=== PATIENT | male | born 1955 | race Caucasian/White ===

== ENCOUNTER 2020-02-24 19:26 | Inpatient (IN) | payer OTHER, SELFPAY ==
[~2020-02-24] VITALS: Ht 165.1 cm; Wt 64.5 kg
[2020-02-24 19:35] VITALS: Ht 165.1 cm; Wt 64.5 kg
--- NOTE | 2020-02-24 19:51 | NUR ---
PT BIB [facility] FROM [facility]. PT PLACED ON BED, MONITOR APPLIED AND VS DONE. PT C/O SOB SINCE THIS AM WITH INCREASED BM/ABD DISCOMFORT SINCE YESTERDAY. PT WITH COVID+ TEST ON 01/20/20. PT STATES INCREASED SOB WITH EXERTION. PT NOTED WITH SHALLOW RAPID BREATHS WITH SOB NOTED WITH EXERTION. PT ON 6L NC WITH 97% O2 SAT. PT DENIES ANY FEVER, N/V/D/C, OR URINARY PROBLEMS AT THIS TIME. [facility] OFFICER AT BEDSIDE.
[2020-02-24 20:18] LABS: BASOPHIL % 0.3 % (0-2)
[2020-02-24 20:19] LABS: PLATELET COUNT 523 x10^3mcL (130-400); RED CELL DISTRIBUTION WIDTH 14.7 % (11.5-14.5)
[2020-02-24 20:29] LABS: ALKALINE PHOSPHATASE 91 U/L (46-116); ALT/SGPT 21 U/L (16-63); AST/SGOT 25 U/L (15-37); BILIRUBIN TOTAL 0.6 mg/dL (0.20-1.00); CALCIUM 8.1 mg/dL (8.5-10.1); CARBON DIOXIDE 21.9 mmol/L (21-32); CHLORIDE SERUM 91 mmol/L (98-107); CREATININE SERUM 0.7 mg/dL (0.7-1.3); GFR1 > 60 mL/min; GLUCOSE SERUM 137 mg/dL (74-106); LACTIC DEHYDROGENASE (LDH) 487 U/L (100-190); TOTAL PROTEIN, SERUM 7.4 g/dL (6.4-8.2)
[2020-02-24 20:36] LABS: ALBUMIN 2.4 g/dL (3.4-5.0); SODIUM SERUM 123 mmol/L (136-145)
--- NOTE | 2020-02-24 20:38 | NUR ---
PT SITTING UP IN BED WITH NO SIGNS OF DISTRESS.
[2020-02-24 20:41] LABS: C REACTIVE PROTEIN 24.8 mg/dL (<=0.9)
[2020-02-24 20:50] LABS: UA SPECIFIC GRAVITY <=1.005 (1.005-1.035); microscopic required? YES; urine erythrocyte TRACE (NEGATIVE)
--- NOTE | 2020-02-24 21:30 | NUR ---
PT RESTING WITH EYES CLOSED AND RESPIRATIONS NO LONGER SHALLOW/RAPID. NO SIGNS OF DISTRESS.
[2020-02-24 21:56] LABS: CHOLESTEROL/HDL RATIO 5.2; MAGNESIUM 2.1 mg/dL (1.8-2.4)
[2020-02-24] MEDS ORDERED: D3-50001 TAB PO (22:21)
[2020-02-24] MEDS ORDERED: NITROGLYCERIN0.4 MG SL (22:22)
[2020-02-24] MEDS ORDERED: ISO300 PO (22:23)
[2020-02-24] MEDS ORDERED: VITAMIN B-650 M2 PO (22:24)
[2020-02-24] MEDS ORDERED: PRIFTIN150 MG PO (22:25)
[2020-02-24] MEDS ORDERED: ASPIR 8181 MG PO (22:25)
[2020-02-24] MEDS ORDERED: TOPROL XL25 MG PO (22:26)
[2020-02-24] MEDS ORDERED: ATORVASTATIN CA20 M1 PO (22:26)
[2020-02-24] MEDS ORDERED: FEOSOL65 M1 PO (22:26)
[2020-02-24] MEDS ORDERED: REPLENS1 CRE PO (22:29)
--- NOTE | 2020-02-25 00:21 | NUR ---
SPOKE WITH DR TIERNEY REGARDING PT'S CARE.
--- NOTE | 2020-02-25 00:21 | NUR ---
SPOKE WITH DR TIERNEY REGARDING PT'S CARE.
--- NOTE | 2020-02-25 01:32 | NUR ---
PT RESTING WITH EYES CLOSED WITH NO SIGNS OF DISTRESS.
--- NOTE | 2020-02-25 02:45 | NUR ---
PT NOTED TO HAVE LOW O2 SAT IN 70'S/80'S S/P EXERTION FROM URINATING. PT PLACED ON NON REBREATHER MASK WITH SAT NOW IN UPPER 90'S.
--- NOTE | 2020-02-25 03:50 | NUR ---
REPORT GIVEN TO BULMARO LEON, EXT. [phone], ALL QUESTIONS ADDRESSED.
--- NOTE | 2020-02-25 04:20 | NUR ---
RECEIVED PT FROM [place] [facility] [place] BY NURSE AND EMT. PT ABLE TO AMBULATE FROM [facility] TO BED, TOLERATED FAIRLY. SHALLOW, LABORED RESPIRATIONS NOTED, PLACED ON 15L NRB, SATTING 97%. TELE #35 PLACED ON PT, READING PACED ON DEMAND AT 90 BPM, UNDERLYING RHYTHM SR. IVL PATENT AND INTACT. C/O SLIGHT CHEST PAIN/PRESSURE DUE TO DIFFICULTY BREATHING, RELAXATION AND POSITIONING RELIEVED PAIN. LAST BM: 02/24/20, FORMED, PREVIOUS 2 DAYS LOOSE STOOLS. CIM GUARDS AT DOORWAY. CONTACT AND DROPLET ISOLATION IN PLACE. EDUCATED ON USE OF CALL LIGHT WHEN IN NEED OF ASSISTANCE, AND PRONE POSITIONING. PT VERBALIZED UNDERSTANDING STATING UNABLE TO PRONE BUT WILL LAY ON SIDE. BED IN LOWEST POSITION. SIDE RAILS UPX2. CALL LIGHT WITHIN REACH. WILL CONTINUE TO MONITOR.
[2020-02-25 04:26] VITALS: BP 125/77
--- NOTE | 2020-02-25 04:58 | NUR ---
TITRATED O2 TO 10L NRB, PT TOLERATING WELL SATTING 98%. HR: 91. WILL CONTINUE TO MONITOR.
--- NOTE | 2020-02-25 06:37 | NUR ---
PT RESTING COMFORTABLY IN BED. NO ACUTE DISTRESS NOTED. SHALLOW RESPIRATIONS NOTED ON 10L NRB, ON TELE# 35 READING PACED ON DEMAND AT 77BPM, UNDERLYING SR WITH OCC PVC, DEPRESSED T WAVE. VOIDING LYNDA URINE. CIM GUARDS AT DOOR. CONTACT AND DROPLET ISOLATION IN PLACE. BED IN LOWEST POSITION. SIDE RAILS UPX2. CALL LIGHT WITHIN REACH. WILL ENDORSE TO ONCOMING SHIFT.
--- NOTE | 2020-02-25 07:35 | NUR ---
RECIVED PATIENT FROM PM NURSE, ALERT AND AND ORIENTED X 4, ABLE TO VERBALIZE NEEDS, LUNG SOUNDS DIM SYLWIA, ON 10L NRB , PULSE OX 93%, NO SOB OBSERVED, MILD GENERALIZED WEAKNESS UPON AMBULATION, IV IN LAC INTACT, ON TELEMERTY SR 60, BOWEL SOUNDS ACTIVE X 4, LAST BM 02/23, SKIN INTACT, NO EDEMA NOTED, PEDAL PULSES EQUAL AND STRONG, CONTINENT OF BLADDER, NO PAIN AT THIS TIME, PATIENT PLEASANT AND COOPERATIVE
[2020-02-25 08:02] LABS: CALCIUM 8.6 mg/dL (8.5-10.1); CARBON DIOXIDE 22.6 mmol/L (21-32); CHLORIDE SERUM 97 mmol/L (98-107); CREATININE SERUM 0.6 mg/dL (0.7-1.3); GFR1 > 60 mL/min; GLUCOSE SERUM 110 mg/dL (74-106); POTASSIUM SERUM 4.4 mmol/L (3.5-5.1); SODIUM SERUM 130 mmol/L (136-145)
[2020-02-25 08:03] LABS: BASOPHIL % 0.2 % (0-2)
[2020-02-25 08:36] VITALS: BP 99/47
[2020-02-25 08:59] LABS: PLATELET COUNT 557 x10^3mcL (130-400); RED CELL DISTRIBUTION WIDTH 14.6 % (11.5-14.5)
--- NOTE | 2020-02-25 13:00 | NUR ---
PATIENT HAD AN EPISODE, OF VTACH X 10 BEATS, NOTIFIED DR. NIEVES HE REQUSTED TO NOTIFY CRDIOLOGY, DR LOVE AWARE
[2020-02-25 13:23] VITALS: BP 96/57
--- NOTE | 2020-02-25 18:19 | NUR ---
PATIENT RESTING COMFORTABLY IN BED, NO S/SX OF DISTRESS OR DISCOMFORT AT THIS TIME, OXYGEN IN PLACE, WILL ENDORSE CARE TO PM NURE
[2020-02-25 18:32] VITALS: BP 96/56
--- NOTE | 2020-02-25 20:00 | NUR ---
PT A/A/O X4. DENIES DIZZINESS AND HEADACHE. BREATH SOUNDS DIMINISHED SYLWIA BASES. BREATHING EVEN AND UNLABORED ON 15L O2 NON REBREATHER MASK, SPO2 98%. DENIES CHEST PAIN AND PRESSURE. BOWEL SOUNDS ACTIVE. NO C/O N/V AND ABD PAIN. IV INTACT ON THE LAC. MADE PT COMFORTABLE. PLACED CALL LIGHT WITH IN REACH. WILL CONTINUE TO MONITOR.
[2020-02-25 20:46] VITALS: BP 97/60
--- NOTE | 2020-02-26 00:47 | NUR ---
PT RESTING WITH EYES CLOSED. NO DISTRESS AND DISCOMFORT NOTED. WILL CONTINUE TO MONITOR.
[2020-02-26 05:24] VITALS: BP 94/59
--- NOTE | 2020-02-26 06:40 | NUR ---
PT QUIET AND RESTING. NO SIGNIFICANT CHANGES NOTED. MADE PT COMFORTABLE. WILL ENDORSE TO THE AM NURSE ACCORDINGLY.
--- NOTE | 2020-02-26 07:25 | NUR ---
RECIVED PATIENT FROM PM NURSE, ALERT AND AND ORIENTED X 4, ABLE TO VERBALIZE NEEDS, LUNG SOUNDS DIM SYLWIA, ON 10L NRB , PULSE OX 100% , NO SOB OBSERVED, MILD GENERALIZED WEAKNESS UPON AMBULATION, IV IN LAC INTACT, ON TELEMERTY SR 60, BOWEL SOUNDS ACTIVE X 4, LAST BM 02/24, SKIN INTACT, NO EDEMA NOTED, PEDAL PULSES EQUAL AND STRONG, CONTINENT OF BLADDER, NO PAIN AT THIS TIME, PATIENT PLEASANT AND COOPERATIVE
[2020-02-26 09:12] LABS: CARBON DIOXIDE 23.9 mmol/L (21-32); CHLORIDE SERUM 98 mmol/L (98-107); CREATININE SERUM 0.7 mg/dL (0.7-1.3); GFR1 > 60 mL/min; GLUCOSE SERUM 105 mg/dL (74-106); SODIUM SERUM 131 mmol/L (136-145)
[2020-02-26 09:22] LABS: BASOPHIL % 0.4 % (0-2); RED CELL DISTRIBUTION WIDTH 15.2 % (11.5-14.5)
--- NOTE | 2020-02-26 09:30 | NUR ---
PATIENT CURRENT O2 SAT 100% ON 10LPM VIA NRB,NO S/SX OF SOB OR DISTRESS O2 DECREASED TO 8LPM, WILL CONRINUE TO MONITOR
[2020-02-26 09:41] VITALS: BP 88/53
[2020-02-26 09:45] VITALS: BP 112/72
[2020-02-26 11:27] LABS: PLATELET COUNT 592 x10^3mcL (130-400)
--- NOTE | 2020-02-26 13:30 | NUR ---
PATIENTS SUPPLEMENTAL O2 DECREASED TO 6LPM VIA NC, NO S/SX OF DISTRESS OR SOB NOTED, PULSE OX READING CURRENTLY 96%, WILL CONTINUE TO MONITOR
[2020-02-26 13:54] VITALS: BP 92/55
--- NOTE | 2020-02-26 15:15 | NUR ---
PATIENTS O2 SAT 97% ON 6LPM O2 VIA NC, NO SOB OR DISTRESS NOTED, WILL CONTINUE TO MONITOR
--- NOTE | 2020-02-26 17:51 | NUR ---
PATIENTS O2 SAT CURRENTLY 97% ON 6LPM O2 VIA NC, NO S/SX OF SOB NOTED, WILL CONTINUE TO MONITOR
--- NOTE | 2020-02-26 18:34 | NUR ---
PATIENT RESTING COMFORTABLY IN BED, NO C/O PAIN DISCOMFORT OR SOB AT THIS TIME, CURRENT O2 SAT 95% ON 6LPM O2 VIA NC, WILL ENDORSE CARE TO PM NURSE
[2020-02-26 18:41] VITALS: BP 96/56
--- NOTE | 2020-02-26 19:25 | NUR ---
RECEIVED PT FROM AM NURSE AT THIS TIME. PT SITING IN BED COMFORTABLY WATCHING TELEVISION. AA/O X4, ABLE TO MAKE NEEDS KNOWN, CLEAR SPEECH. DENIES HEADACHE/ DIZZINESS. HUNGARIAN SPEAKING. TELE MONITOR #[address], PACEMAKER PT, PACED ON DEMAND. HR 78. PULSES PALPABLE, NO EDEMA. DIMINISHED LUNG SOUNDS TO BLL. O2 6 LPM VIA NC, O2 SAT 97%. RESPIRATIONS EVEN AND UNLABORED. PT DENIES SOB. ACTIVE BS X 4 QUADS, DENIES N/V/D. ABD SOFT AND NON DISTENDED/ NON TENDER. VOIDS USING URINAL. DENIES PAIN. PT IS CIM, GUARDS OUTSIDE DOOR AT ALL TIMES. PT HAS SHACKLE TO RIGHT ANKLE, SKIN INTACT, CIRCULATION +. DROPLET PRECAUTIONS IN PLACE FOR POSITIVE COVID 19 STATUS. PT AWARE. PROPER PPE WORN BY ALL STAFF. ALL NEEDS MET AT THIS TIME. CALL BUTTON WITHIN REACH, WILL CONTINUE TO MONITOR.
[2020-02-26 21:22] VITALS: BP 99/60
--- NOTE | 2020-02-27 00:05 | NUR ---
PT IN BED RESTING WITH EYES CLOSED, BUT EASILY AROUSABLE. RESPIRATIONS E/U, NO RESPIRATORY DISTRESS AT THIS TIME. CIM PT WITH GUARDS OUTSIDE DOOR AT ALL TIMES. NO ACUTE DISTRESS AT THIS TIME. CALL BUTTON WITHIN REACH, WILL CONTINUE TO MONITOR.
[2020-02-27 06:33] VITALS: BP 103/64
--- NOTE | 2020-02-27 06:33 | NUR ---
PT SLEPT THROUGHOUT THE NIGHT, BUT EASILY AROUSABLE. CONTINUES ON 6LPM VIA NC, O2 SAT 98-100%, RESPIRATIONS EVEN AND UNLABORED. DENIES PAIN AT THIS TIME. BED IN LOWEST POSITION, CONTINUES ON DROPLET PRECAUTIONS FOR POSITIVE COVID 19 STATUS. CIM PT, SHACKLE TO ANKLE IN PLACE, SKIN INTACT, CIRCULATION WNL. NO ACUTE CHANGES OVERNIGHT. PROVIDED ROOM TEMPERATURE WATER. CALL BUTTON WITHIN REACH, WILL ENDORSE CARE TO AM NURSE.
[2020-02-27 07:40] VITALS: BP 99/58
--- NOTE | 2020-02-27 07:40 | NUR ---
RECIVED PATIENT FROM PM NURSE, ALERT AND AND ORIENTED X 4, ABLE TO VERBALIZE NEEDS, LUNG SOUNDS DIM SYLWIA, ON 6LPM O2 VIA NC , PULSE OX 99% , NO SOB OBSERVED, MILD GENERALIZED WEAKNESS UPON AMBULATION, IV IN LAC INTACT, ON TELEMERTY SR 60, BOWEL SOUNDS ACTIVE X 4, LAST BM 02/23, SKIN INTACT, NO EDEMA NOTED, PEDAL PULSES EQUAL AND STRONG, CONTINENT OF BLADDER, NO PAIN AT THIS TIME, PATIENT PLEASANT AND COOPERATIVE
[2020-02-27 07:44] LABS: BASOPHIL % 0.2 % (0-2)
[2020-02-27 09:18] LABS: RED CELL DISTRIBUTION WIDTH 14.9 % (11.5-14.5)
--- NOTE | 2020-02-27 09:30 | NUR ---
PATIENTS BP 99/58 METOPROLOL HELD AT THIS TIME
[2020-02-27 09:34] LABS: PLATELET COUNT 601 x10^3mcL (130-400)
--- NOTE | 2020-02-27 10:44 | NUR ---
PATIENT AMBULATED TO BATHROOM AND O2 SAT DECREASED TO 80%, PATIENT REPORTS SOB AND DISTRESS, SECURED SUPPLEMENTAL O2 VIA NC,AND INSTRUCTED TO BREATH DEEPLY PATIENT WAS ABLE TO RETURN TO 90% WITHIN A FEW MINUTES OF INTERVENTIONS, WILL CONTINUE TO MONITOR, BEDSIDE COMMODE PLACED IN ROOM, ADVISED PATIENT TO PRESS CALL LIGHT FOR ASSISTANCE
[2020-02-27 12:40] VITALS: BP 98/56
[2020-02-27 14:43] LABS: CARBON DIOXIDE 22.4 mmol/L (21-32); CHLORIDE SERUM 97 mmol/L (98-107); CREATININE SERUM 0.8 mg/dL (0.7-1.3); GFR1 > 60 mL/min; GLUCOSE SERUM 73 mg/dL (74-106); POTASSIUM SERUM 4.5 mmol/L (3.5-5.1); SODIUM SERUM 132 mmol/L (136-145)
[2020-02-27 17:50] VITALS: BP 99/59
--- NOTE | 2020-02-27 18:54 | NUR ---
PATIENT RESTING COMFORTABLY IN BED, NO S/SX OF DISTRESS OR DISCOMFORT AT THIS TIME, WILL ENDORSE CARE TO PM NURSE,
--- NOTE | 2020-02-27 19:15 | NUR ---
RECEIVED PT FROM AM NURSE, PT AWAKE AND WATCHING TELEVISION AT THIS TIME. AA/O X 4, ABLE TO MAKE NEEDS KNOWN, CLEAR SPEECH, NO FACIAL DROOP. TELE MONITOR #[address], NSR HR 70, DENIES CHEST PAIN/ CHEST PRESSURE. PULSES PALPABLE, NO EDEMA. SPO2 97% ON 6 LPM VIA NC. RESPIRATIONS EVEN AND UNLABORED, NO SOB AT THIS TIME. ACTIVE BS X 4 QUADS, ABD SOFT AND ROUND AND NON DISTENDED/ NON TENDER. GENERALIZED WEAKNESS, SAFETY PRECAUTIONS IN PLACE. DENIES PAIN. IV SITE PATENT, NO ERYTHEMA, NO EDEMA, SL. CIM PT, ANKLE SHACKLE IN PLACE, SKIN INTACT WITH GOOD CIRCULATION. GUARDS OUTSIDE DOOR AT ALL TIMES. DROPLET PRECAUTIONS IN PLACE FOR POSITIVE COVID 19 STATUS, PT AWARE AND PROPER PPE IN PLACE. CALL BUTTON WITHIN REACH, WILL CONTINUE TO MONITOR.
--- NOTE | 2020-02-27 21:30 | NUR ---
METOPROLOL TARTRATE 12.5 MG HELD PER PARAMETERS. PT'S SBP <100, 95/56 (MAP 70), HR 69. ALL OTHER MEDICATIONS GIVEN ORDERED.
[2020-02-27 21:44] VITALS: BP 95/56
--- NOTE | 2020-02-28 00:15 | NUR ---
PT RESTING IN BED WITH EYES CLOSED, RESPIRATIONS EVEN AND UNLABORED ON 6 LPM VIA NC, O2 SAT 97%. TELE MONITOR #25, PACED ON DEMAND, HR 68BPM. NO SIGNS OR SYMPTOMS OF PAIN OR DISTRESS AT THIS TIME. CIM PT WITH GUARD OUTSIDE DOOR AT ALL TIMES. CALL BUTTON WITHIN REACH, WILL CONTINUE TO MONITOR.
[2020-02-28 06:08] VITALS: BP 101/61
--- NOTE | 2020-02-28 07:43 | NUR ---
PT AWAKE AND RESTING IN BED AT THIS TIME. RESPIRATIONS E/U ON 6 LPM VIA NC, NO SOB / DENIES CHEST PAIN AT THIS TIME. NO ACUTE CHANGES OVERNIGHT. WATER PROVIDED, URINAL EMPTIED. IV SITE SL, FLUSHING WELL, NO ERYTHEMA, NO INFILTRATION. CIM PT WITH GUARD OUTSIDE DOOR AT ALL TIMES. DROPLET PRECAUTIONS IN PLACE, PROPER PPE WORN BY ALL STAFF. ALL CONCERNS MET AT THIS TIME. BED IN LOWEST POSITION, CALL LIGHT WITHIN REACH, CARE ENDORSE TO AM NURSE KATHRINE.
--- NOTE | 2020-02-28 07:48 | NUR ---
RECEIVED PATIENT FROM CAROLYN DEJESUS. WILL NEED TO EVAL PATIENT DURING AM ROUNDS PATIENT IS COVID POSITIVE IN ISOLATION.
[2020-02-28 09:11] VITALS: BP 109/68
--- NOTE | 2020-02-28 09:25 | NUR ---
PATIENT IN BED AT THIS TIME. NO COMPLAINTS OF PAIN OR SOB. DENIES NAUSEA OR DIZZINESS. PO INTAKE GOOD, ABLE TO TAKE PO MEDS. PATIENT ON 6 LPM WITH SATS OF 97%. RT GEORGE ARRIVE TO EVAL PATIENT, DECREASE OXYGEN TO 4 LPM AT THIS TIME. SPOKE WITH PATIENT ABOUT PLAN OF CARE TODAY INCLUDING WAITING FOR DR NIEVES, PATIENT AWARE AND AGREES. CALL LIGHT IN REACH, CORRECTIONS OFFICERS AT BEDSIDE.
[2020-02-28 13:33] VITALS: BP 98/55
[2020-02-28 14:34] VITALS: BP 98/55
--- NOTE | 2020-02-28 14:55 | NUR ---
PATIENT IN BED AT THIS TIME, DENIES CP OR SOB. STATES HE ATE TOO FAST AND IS FEELING PRESSURE IN HIS CHEST. ENCOURAGED PATIENT TO DRINK WATER SLOWLY. NO OTHER COMPLAINTS. WILL CONTINUE TO MONITOR.
[2020-02-28 18:33] VITALS: BP 103/61
--- NOTE | 2020-02-28 20:00 | NUR ---
RECEIVED PT LYING IN BED IN NO DISTRESS. PT IS ORIENTED X4. ABLE TO MAKE NEEDS KNOWN. TELE 25 SHOWS NSR, PACED ON DEMAND. LUNG SOUNDS DIMINISHED. PT BREATHING EASILY WITH NO RESPIRATORY DISTRESS ON 4L O2 VIA N/C. BS ACTIVE IN ALL FOUR QUADS. NO ABD PAIN NOTED. VOIDING FREELY WITH URINAL AT BEDSIDE. IV TO LAC HL. GENERALIZED WEAKNESS NOTED. NO EDEMA NOTED. PT SHACKLED TO BED WITH GUARD OUTSIDE PT ROOM. SHIFT ASSESSMENT COMPLETED. CALL LIGHT WITHIN REACH. BED IS IN LOWEST POSITION. ALL NEEDS TENDED TO. WILL CONTINUE TO MONITOR CLOSELY.
[2020-02-28 21:14] VITALS: BP 102/64
--- NOTE | 2020-02-28 21:30 | NUR ---
LOPRESSOR HELD D/T BP LOW. ALL OTHER MEDS GIVEN ORDERED. PT RESTING IN BED IN NO DISTRESS, PT REMAINS ON 4L O2 VIA N/C, NO RESPIRATORY DISTRESS NOTED. ALL NEEDS TENDED TO. WILL CONTINUE TO MONITOR CLOSELY.
--- NOTE | 2020-02-29 02:00 | NUR ---
PT APPEARS TO BE SLEEPING IN NO DISTRESS. CALL LIGHT WITHIN REACH. WILL CONTINUE TO MONITOR CLOSELY.
[2020-02-29 06:04] VITALS: BP 104/67
--- NOTE | 2020-02-29 06:34 | NUR ---
PER PT SLEPT POORLY DURING THE NIGHT. NO RESPIRATORY DISTRESS NOTED, PT REMAINS ON 4L O2 VIA N/C. FRESH WATER PROVIDED. ALL NEEDS TENDED TO. CALL LIGHT WITHIN REACH. BED IS IN LOWEST POSITION. WILL ENDORSE TO INCOMING SHIFT.
[2020-02-29 06:46] LABS: BASOPHIL % 0.4 % (0-2); RED CELL DISTRIBUTION WIDTH 14.5 % (11.5-14.5)
[2020-02-29 06:59] LABS: CALCIUM 8.8 mg/dL (8.5-10.1); CARBON DIOXIDE 26.1 mmol/L (21-32); CHLORIDE SERUM 99 mmol/L (98-107); CREATININE SERUM 0.7 mg/dL (0.7-1.3); GFR1 > 60 mL/min; GLUCOSE SERUM 82 mg/dL (74-106); POTASSIUM SERUM 3.9 mmol/L (3.5-5.1); SODIUM SERUM 133 mmol/L (136-145)
[2020-02-29 07:06] LABS: PLATELET COUNT 651 x10^3mcL (130-400)
--- NOTE | 2020-02-29 07:36 | NUR ---
RECEIVED PATIENT FROM CAROLYN ROCHE. WILL SPEAK WITH PATIENT DURING AM ROUNDS PATIENT IS IN COVID ISOLATION.
[2020-02-29 09:30] VITALS: BP 92/59
--- NOTE | 2020-02-29 10:20 | NUR ---
PATIENT SEATED IN BED AT THIS TIME, CONTINUES ON 4 LPM. DENIES SOB OR PAIN. STATES HE IS HAVING COUGH WITH PHELGM THAT HE IS ABLE TO CLEAR. PATIENT PO MEDICATIONS GIVEN AND TOLERATED. WILL WAIT FOR DR NIEVES TO ARRIVE TO SEE PATIENT. PATIENT ABLE TO MAKE NEEDS KNOWN AND CALL LIGHT IN REACH. CORRECTIONS OFFICERS ALSO AT BEDSIDE.
[2020-02-29 13:08] VITALS: BP 97/64
--- NOTE | 2020-02-29 14:34 | NUR ---
PATIENT UP OUT OF BED TO USE COMMODE. DESATURATION TO 76%.
[2020-02-29 18:02] VITALS: BP 95/52
--- NOTE | 2020-02-29 19:33 | NUR ---
RECIEVED PT FROM AM NURSE. CALLED INTO PTS ROOM. PT AWARE OF CHNAGE OF SHIFT PT HAS NO NEEDS AT THIS TIME. PM ASSESSMENT TO FOLLOW.
--- NOTE | 2020-02-29 21:50 | NUR ---
PT TOLERATED MEDS WELL. PT IN BED RESTING, HAS NO CONCERNS AT THIS TIME. PT IS STABLE. PT ENCOURAGED TO USE CALL LIGHT IF ASSISTANCE IS NEEDED.
[2020-02-29 22:04] VITALS: BP 93/61
[2020-03-01 05:57] VITALS: BP 105/56
--- NOTE | 2020-03-01 06:29 | NUR ---
PT IN BED RESTING, NO SIGNS OF DISTRESS. PT DENIES SOB AND PAIN. ALL NEEDS ADDRESSED. ENCOURAGED TO USE CALL LIGHT. WILL ENDORSE TO AM NURSE.
--- NOTE | 2020-03-01 07:05 | NUR ---
GUARDS OUTSIDE ROOM AT ALL TIMES.
--- NOTE | 2020-03-01 07:05 | NUR ---
RECIEVED PT RESTING IN BED WITH NO C/O ANY DISTRESS OR PAIN. A/OX4 WITH NO NOE OR DIZZINESS. TLE#25 CONNECTED TO PT AND HE DENIES ANY CP OR PRESSURE. PT FOUND ON 9 LPM O2 AND DENIES ANY SOB. SKIN CDI. LAC IV CDI AND PATENT. SAFETY PRECAUTIONS IN PLACE, CALL LIGHT WITHIN REACH, WILL MONITOR.
[2020-03-01 09:44] VITALS: BP 98/54
--- NOTE | 2020-03-01 12:39 | NUR ---
PT STABLE WITH NO C/O PAIN OR DISTRESS. SAFETY PRECAUTIONS IN PLACE, CALL LIGHT WITHIN REACH, GUARDS OUTSIDE DOOR, WILL CONTINUE TO MONITOR.
[2020-03-01 14:05] VITALS: BP 91/51
--- NOTE | 2020-03-01 14:40 | NUR ---
Initial Nutrition Assessment: [address] 64M MR Dx: COVID-19, PNA PMHx: CAD, CHF, HTN PSHx: none noted Labs: (02/28) Na 133L, WBC 11.1H, H/H 11.7/35L (02/23) LDL 124H, HDL 36L, Amylase 22L, Lipase 58L Meds: Aspirin, Colace, Decadron, Lipitor, Lopressor, Lovenox, PRN meds: Nitrostat, Phenergan, Tylenol, Ventolin Diet: Cardiac diet PO intake since admission: 50-100% x 8 meals with average PO intake of 69% Ht: 165.1cm/65in Wt: 64.495kg/142lbs BMI: 23.7 Bed scale: unknown IBW: 61.82kg/136lbs %IBW: 104.33% UBW: unknown Age: 64 Food Allergies: unknown Edema: none noted Last BM: 02/27 Skin: skin intact Neftaly: 21 Per H and P (02/23), 64 yo male h/o CAD, CHF, HTN CIM resident, COVID 19 positive dx'd on 02/20/20. He c/o increased sob throughout the day with sob. He was seen and evaluated at the ed, initial troponi was negative. He however was hypoxic with b PNA. He was given resp rx and was admitted to tele. Pt was admitted with dx: hypoxia, respiratory failure, PNA, COVID 19, CAD, R/O IL, CHF, Hyponatremia, Hypercoag RD Note (03/01) Pt's current diet provided 1417kcal and 79g protein meeting 76% of estimated kcal needs and 100% of estimated protein needs. Pt was in isolation d/t COVID-19. RD spoke with pt's primary RN and DOUBLE END SEWER. Per pt's DOUBLE END SEWER, pt had good appetite today and had approximately 50% of his food. DOUBLE END SEWER also mentioned that pt did not exhibit chewing or swallowing difficulties, but pt did spit in a cup. Additionally, pt's RN denied GI distress today. Problem with: N/V/D/C: none per RN Problems with: Chewing: Swallowing: no per DOUBLE END SEWER, but pt spat in a cup Current appetite: good per DOUBLE END SEWER, 50% today Recent wt change: unknown %wt change: unknown Height: unknown Vitamin/Supplement use: unknown Special diet at home: unknown Physical activity: unknown Nutrition education given (specify specific nutrition education and handout given): Written education on heart healthy diet with reduced sodium in Faroese was provide to pt via pt's RN. Food-drug interactions? Education given? n/a Estimated Nutritional Needs Based on ideal body weight (62kg) Energy: 4180-0517 kcal/day (30-35 kcal/kg for viral infection) Protein: 74-93 g/day (1.2-1.5 g/kg for viral infection) Fluid: 5117-7871 mL/day (1 mL/kcal) or per MD Nutrition Diagnosis: 1. Increased energy and protein needs r/t viral infection a/e/b pt is COVID positive. Intervention 1. Recommend continue cardiac diet as tolerate 2. Recommend ensure high protein QD w/ breakfast for additional 160kcal and 16g protein. Monitor/Evaluate Goal: PO intake at least 75% of estimated needs Monitor: PO intake, Labs, GI function, Body weight F/U in 7 days as low risk 03/08
--- NOTE | 2020-03-01 14:40 | NUR ---
1. Recommend continue cardiac diet as tolerate 2. Recommend ensure high protein QD w/ breakfast for additional 160kcal and 16g protein.
--- NOTE | 2020-03-01 18:21 | NUR ---
PT RESTING IN BED WITH NO C/O ANY DISTRESS OR PAIN. A/OX4 WITH NO NOE OR DIZZINESS. TELE#25 CONNECTED TO PT AND HE DENIES ANY CP OR PRESSURE. PT ON 9 LPM O2 AND DENIES ANY SOB. SKIN CDI. LAC IV CDI AND PATENT. GUARDS OUSTIDE OF ROOM IN HALLWAY. SAFETY PRECAUTIONS IN PLACE, CALL LIGHT WITHIN REACH, WILL ENDORSE CARE TO NIGHT NURSE.
[2020-03-01 18:33] VITALS: BP 91/50
--- NOTE | 2020-03-01 19:40 | NUR ---
RECEIVED REPORT FROM DAY SHIFT RN. PT RESTING IN BED. AA&O X4. NO C/O HEADACHE/DIZZINESS. NO SOB ON O2 9L VIA OXYMIZER. DIMINISHED LUNG SOUNDS TO SYLWIA BASES. NO C/O CHEST PAIN. NO C/O N/V/ABD PAIN. VOIDS FREELY. GENERALIZED WEAKNESS NOTED. NO WOUNDS. IV SALINE LOCKED TO LAC, PATENT AND INTACT. SAFETY MEASURES IN PLACE. BED IN LOWEST POSITION. SIDE RAILS UP X2. DEMONSTRATED HOW TO CALL FOR ASSISTANCE. CALL LIGHT WITHIN REACH. ON DROPLET AND CONTACT PRECAUTIONS.
[2020-03-01 21:48] VITALS: BP 100/59
--- NOTE | 2020-03-02 00:30 | NUR ---
PT RESTING WITH EYES CLOSED. NO RESP DISTRESS NOTED ON 9L VIA OXYMIZER. NO FACIAL GRIMACING. CALL LIGHT WITHIN REACH. WILL CONTINUE TO MONITOR.
[2020-03-02 05:41] VITALS: BP 97/61
--- NOTE | 2020-03-02 06:31 | NUR ---
PT RESTED IN LONG INTERVALS DURING SHIFT. NO SOB ON O2 9L VIA OXYMIZER. NO C/O PAIN. NO ACUTE CHANGES NOTED. SAFETY MEASURES MAINTAINED. ALL NEEDS ATTENDED TO. CALL LIGHT WITHIN REACH. WILL ENDORSE CONTINUITY OF CARE TO ONCOMING RN.
--- NOTE | 2020-03-02 07:35 | NUR ---
RECEIVED PT. IN BED A/A/O X3. NO SOB, NO N/V NOTED. PT. DENIES ANY PAIN AT THIS TIME. PT. IS ON O2 AT 9L VIA OXYMIZER. IV SITE NOTED TO [employer]. PT. IS ON DROPLET ISOLATION FOR (+) COVID-19. CIM OFFICERS X2 SITTING AT THE DOOR WAY. BED IN LOW POS., CALL LIGHT WITHIN REACH. SIDE RAILS UP X3.
[2020-03-02 08:23] LABS: BASOPHIL % 0.1 % (0-2)
[2020-03-02 08:30] VITALS: BP 98/54
[2020-03-02 08:33] LABS: RED CELL DISTRIBUTION WIDTH 14.6 % (11.5-14.5)
[2020-03-02 08:36] LABS: PLATELET COUNT 612 x10^3mcL (130-400)
[2020-03-02 08:47] LABS: CALCIUM 9.1 mg/dL (8.5-10.1); CARBON DIOXIDE 26.5 mmol/L (21-32); CHLORIDE SERUM 99 mmol/L (98-107); CREATININE SERUM 0.8 mg/dL (0.7-1.3); GFR1 > 60 mL/min; GLUCOSE SERUM 107 mg/dL (74-106); POTASSIUM SERUM 4.7 mmol/L (3.5-5.1); SODIUM SERUM 134 mmol/L (136-145)
[2020-03-02 12:30] VITALS: BP 97/62
[2020-03-02 16:00] VITALS: BP 90/58
--- NOTE | 2020-03-02 16:56 | NUR ---
REMAINS IN STABLE CONDITION AT THIS TIME. WILL CONTINUE TO MONITOR.
--- NOTE | 2020-03-02 19:45 | NUR ---
RECEIVED REPORT FROM DAY SHIFT RN. PT RESTING COMFORTABLY. AA&O X4. NO C/O SOB ON O2 9L VIA OXYMIZER. BREATHING EVEN AND UNLABORED. NO C/O PAIN. IV SALINE LOCKED TO LAC, INTACT. SAFETY MEASURES IN PLACE. BED IN LOWEST POSITION. SIDE RAILS UP X2. INSTRUCTED PT TO CALL FOR ASSISTANCE. CALL LIGHT WITHIN REACH. DROPLET AND CONTACT PRECAUTIONS IN PLACE. CIM GUARD AT THE DOOR.
[2020-03-02 23:36] VITALS: BP 100/61
--- NOTE | 2020-03-03 00:30 | NUR ---
PT RESTING WITH EYES CLOSED. NO RESP DISTRESS ON O2 9L VIA OXYMIZER. CALL LIGHT WITHIN REACH. WILL CONTINUE TO MONITOR.
[2020-03-03 06:15] VITALS: BP 111/63
--- NOTE | 2020-03-03 07:00 | NUR ---
PT RESTED WELL THROUGHOUT SHIFT. ON O2 9L VIA OXYMIZER. O2 SAT 99%. NO C/O PAIN. NO ACUTE DISTRESS NOTED. SAFETY MEASURES MAINTAINED. CALL LIGHT WITHIN REACH. WILL ENDORSE CARE TO DAY SHIFT RN.
--- NOTE | 2020-03-03 07:30 | NUR ---
RECEIVED PT LYING IN BED A/A. BREATHING EQUAL/UNLABORED ON 9L/OXYMIZER. NO ACUTE DISTRESS. PT C/O MILD PAIN AT ANUS. TELE 35, NSR/PACED ON DEMAND. IV SITE WNL. BED IN LOW POSITON, CALL LIGHT IN REACH, SAFETY PRECAUTIONS IN PLACE. GUARDS AT DOOR. WILL CONTINUE TO MONITOR
[2020-03-03 08:26] VITALS: BP 93/49
--- NOTE | 2020-03-03 08:30 | NUR ---
PT STATED HE HAD MILD PAIN AFTER HAVING A BM. NO BLOOD NOTED IN BM. PT REFUSED ASSESSMENT OF ANUS. WILL CONTINUE TO MONITOR
[2020-03-03 08:49] LABS: CALCIUM 8.8 mg/dL (8.5-10.1); CARBON DIOXIDE 27.1 mmol/L (21-32); CHLORIDE SERUM 98 mmol/L (98-107); CREATININE SERUM 0.8 mg/dL (0.7-1.3); GFR1 > 60 mL/min; GLUCOSE SERUM 72 mg/dL (74-106); POTASSIUM SERUM 3.5 mmol/L (3.5-5.1); SODIUM SERUM 134 mmol/L (136-145)
[2020-03-03 09:14] LABS: RED CELL DISTRIBUTION WIDTH 14.9 % (11.5-14.5)
--- NOTE | 2020-03-03 09:15 | NUR ---
RECEIVED CRITICAL VALUE WBC 25.1, REPORT GIVEN TO ATTENDING NURSE.
[2020-03-03 11:15] LABS: BAND NEUTROPHIL 8 % (0-10); SEGMENTED NEUTROPHILS 73 % (37-75)
[2020-03-03 11:16] LABS: METAMYELOCTE 1 % (0-2); MONOCYTE 7 % (0-7); MYELOCYTE 1 % (0-2); rbc morphology (normal/abnorm) NORMAL (NORMAL)
[2020-03-03 11:17] LABS: PLATELET MORPHOLOGY GIANT PLATELET SEEN
[2020-03-03 11:18] LABS: PLATELET COUNT 616 x10^3mcL (130-400)
--- NOTE | 2020-03-03 11:20 | NUR ---
PT LYING IN BED WITH EYES CLOSED, EASILY AROUSABLE. BREATHING EQUAL/UNLABORED ON 9L OXYMIZER. NO ACUTE CHANGES/PAIN/DISTRESS. IV SITE WNL. WILL CONTINUE TO MONITOR
[2020-03-03 12:20] VITALS: BP 88/55
[2020-03-03 16:32] VITALS: BP 96/62
--- NOTE | 2020-03-03 18:16 | NUR ---
PT LYING IN BED A/A. BREATHING EQUAL/UNLABORED ON RA. NO ACUTE PAIN/DISTRESS/CHANGES. IV SITE WNL. BED IN LOW POSITION, CALL LIGHT IN REACH, SAFETY PRECAUTIONS IN PLACE. GUARDS AT DOOR. WILL ENDORSE TO NIGHT NURSE
--- NOTE | 2020-03-03 19:10 | NUR ---
CARE ASSUMED FROM OUTGOING RN. ON TELE# 35 READING SR 77 WITH OCC PVC. CURRENTLY ON 9L OXYMIZER PER DAY SHIFT RN, SATTING 98%. CIM GUARDS AT DOOR. CONTACT AND DROPLET ISOLATION IN PLACE. WILL CONTINUE TO MONITOR.
[2020-03-03 20:06] VITALS: BP 104/59
--- NOTE | 2020-03-04 00:19 | NUR ---
PT RESTING COMFORTABLY IN BED WITH EYES CLOSED. NO ACUTE DISTRESS NOTED. EVEN AND UNLABORED RESPIRATIONS ON 4L OXYMIZER, SATTING 98%. ON TELE READING SR 70, PACED ON DEMAND. CIM GUARDS AT DOOR. BED IN LOWEST POSITION. SIDE RAILS UPX2. CALL LIGHT WITHIN REACH. WILL CONTINUE TO MONITOR.
--- NOTE | 2020-03-04 03:14 | NUR ---
EVEN AND UNLABORED RESPIRATIONS NOTED ON 4L OXYMIZER, SATTING 97-99%, CONTINUOUS PULSE OX MONITORING DISCONTINUE AT THIS TIME, NO C/O SOB OR PAIN AT THIS TIME. BED IN LOWEST POSITION. SIDE RAILS UPX2. CALL LIGHT WITHIN REACH. WILL CONTINUE TO MONITOR.
[2020-03-04 04:06] VITALS: BP 95/58
--- NOTE | 2020-03-04 06:09 | NUR ---
PT RESTED COMFORTABLY IN INTERVALS THROUGHOUT THE SHIFT. ALL NEEDS TENDED TO AND MET. ALL SCHEDULED MEDICATIONS GIVEN. EVEN AND UNLABORED RESPIRATIONS ON 4L OXYMIZER, SATTING 98%. ON TELE READING PACED ON DEMAND, SR WITH OCC PVC. CIM GUARDS AT DOOR. CONTACT AND DROPLET ISOLATION IN PLACE. BED IN LOWEST POSITION. SIDE RAILS UPX2. CALL LIGHT WITHIN REACH. WILL ENDORSE TO ONCOMING SHIFT.
--- NOTE | 2020-03-04 06:30 | NUR ---
REAPPLIED CONTINUOUS PULSE OX MONITORING, SATTING 99% AT THIS TIME. NO ACUTE DISTRESS NOTED. WILL ENDORSE TO ONCOMING SHIFT.
--- NOTE | 2020-03-04 07:45 | NUR ---
RECEIVED PT LYING IN BED A/A. BREATHING EQUAL/UNLABORED ON 4L/OXYMIZER. NO ACUTE PAIN/DISTRESS. IV SITE WNL. TELE 35, PACED ON DEMAND. BED IN LOW POSITION, CALL LIGHT IN REACH, SAFETY PRECAUTIONS IN PLACE. GUARDS AT DOOR. WILL CONTINUE TO MONITOR
[2020-03-04 08:00] VITALS: BP 88/58
[2020-03-04 09:31] LABS: CARBON DIOXIDE 25.2 mmol/L (21-32); CHLORIDE SERUM 100 mmol/L (98-107); CREATININE SERUM 0.8 mg/dL (0.7-1.3); GFR1 > 60 mL/min; GLUCOSE SERUM 87 mg/dL (74-106); POTASSIUM SERUM 3.8 mmol/L (3.5-5.1); SODIUM SERUM 135 mmol/L (136-145)
[2020-03-04 10:27] LABS: RED CELL DISTRIBUTION WIDTH 14.8 % (11.5-14.5)
[2020-03-04 12:09] VITALS: BP 91/50
--- NOTE | 2020-03-04 12:21 | NUR ---
PT SITTING UP IN BED A/A. BREATHING EQUAL/UNLABORED ON 4L OXYMIZER. NO ACUTE PAIN/DISTRESS/CHANGES. IV SITE WNL. WILL CONTINUE TO MONITOR
[2020-03-04 14:01] LABS: BAND NEUTROPHIL 6 % (0-10); SEGMENTED NEUTROPHILS 76 % (37-75)
[2020-03-04 14:02] LABS: MONOCYTE 6 % (0-7); PLATELET MORPHOLOGY LARGE PLATELET SEEN; rbc morphology (normal/abnorm) NORMAL (NORMAL)
[2020-03-04 14:03] LABS: PLATELET COUNT 554 x10^3mcL (130-400)
[2020-03-04 16:28] VITALS: BP 97/59
--- NOTE | 2020-03-04 18:31 | NUR ---
PT LYING IN BED A/A. BREATHING EQUAL/UNLABORED ON 4L OXYMIZER. NO ACUTE PAIN/DISTRESS/CHANGES. IV SITE WNL. BED IN LOW POSITION, CALL LIGHT IN REACH, SAFETY PRECAUTIONS IN PLACE, GUARDS AT DOOR. WILL ENDORSE TO NIGHT NURSE
--- NOTE | 2020-03-04 19:15 | NUR ---
CARE ASSUMED FROM OUTGOING RN. PT CURRENTLY ON 4L OXYMIZER, SATTING 96%, ON TELE# 35 READING SR 83 WITH OCC PVC, PACED ON DEMAND. CIM GUARDS AT DOOR, CONTACT AND DROPLET ISOLATION IN PLACE. WILL CONTINUE TO MONITOR.
[2020-03-04 20:07] VITALS: BP 96/55
--- NOTE | 2020-03-05 00:08 | NUR ---
PT RESTING COMFORTABLY IN BED WITH EYES CLOSED. NO ACUTE DISTRESS NOTED. EVEN AND UNLABORED RESPIRATIONS ON 3LNC, SATTING 98%, ON TELE READING SR 68 WITH OCC PVC, PACED ON DEMAND. CIM GUARDS AT DOOR. CONTACT AND DROPLET ISOLATION IN PLACE. BED IN LOWEST POSITION. SIDE RAILS UPX2. CALL LIGHT WITHIN REACH. WILL CONTINUE TO MONITOR.
[2020-03-05 04:41] VITALS: BP 95/64
--- NOTE | 2020-03-05 06:19 | NUR ---
PT RESTED COMFORTABLY IN INTERVALS THROUGHOUT THE SHIFT. ALL NEEDS TENDED TO AND MET. ALL SCHEDULED MEDICATIONS GIVEN. C/O ABD PAIN MEDICATED PER EMAR. EVEN AND UNLABORED RESPIRATIONS ON 2LNC, SATTING 96%, DESATURATED DURING EXERTION USING BSC TO 83%, ON TELE READING SR WITH OCC PVC, PACED ON DEMAND. C/O HAVING NO ENERGY. CONTACT AND DROPLET ISOLATION IN PLACE. BED IN LOWEST POSITION. SIDE RAILS UPX2. CALL LIGHT WITHIN REACH. WILL ENDORSE TO ONCOMING SHIFT.
--- NOTE | 2020-03-05 07:30 | NUR ---
PT ENDORSE TO ME THIS MORNING, LAYING IN BED RESTING/ CIM PATIENT/ AA/O X4 / BREATHING EVEN AND UNLABORED ON 2L NC NO ACUTE RESP DISTRESS OR SOB NOTED. TELE 35 PACED ON DEMAND/ DENIES ANY CP OR PRESSURE/ NSR NOTED. VOIDS FREELY. BSC NEAR BED. IV TO THE LAC INTACT AND PATENT/ HEPLOCKED / NO REDNESS OR SWELLING. WILL CONTINUE TO MONITOR.
[2020-03-05 08:02] LABS: CALCIUM 8.5 mg/dL (8.5-10.1); CARBON DIOXIDE 24.5 mmol/L (21-32); CHLORIDE SERUM 101 mmol/L (98-107); CREATININE SERUM 0.8 mg/dL (0.7-1.3); GFR1 > 60 mL/min; GLUCOSE SERUM 88 mg/dL (74-106); POTASSIUM SERUM 3.4 mmol/L (3.5-5.1); SODIUM SERUM 136 mmol/L (136-145)
[2020-03-05 08:32] LABS: RED CELL DISTRIBUTION WIDTH 15.1 % (11.5-14.5)
[2020-03-05 08:47] VITALS: BP 116/57
--- NOTE | 2020-03-05 09:00 | NUR ---
LAB CALLED WITH WBC 23.6 DR. NIEVES AWARE.
[2020-03-05 12:04] VITALS: BP 93/55
--- NOTE | 2020-03-05 14:25 | NUR ---
PT TOLERATED 100 % OF LUNCH/ DENIES ANY N/V OR DISCOMFORT AT THIS TIME. WILL CONTINUE TO MONITOR.
[2020-03-05 14:34] LABS: SEGMENTED NEUTROPHILS 79 % (37-75)
[2020-03-05 14:35] LABS: BAND NEUTROPHIL 5 % (0-10); MONOCYTE 6 % (0-7); rbc morphology (normal/abnorm) NORMAL (NORMAL)
[2020-03-05 14:36] LABS: PLATELET MORPHOLOGY LARGE PLATELET SEEN
[2020-03-05 14:58] LABS: PLATELET COUNT 508 x10^3mcL (130-400)
[2020-03-05 16:44] VITALS: BP 91/54
--- NOTE | 2020-03-05 17:54 | NUR ---
NO ACUTE CHANGES AT THIS TIME/ NO ACUTE RESP DISTRESS OR SOB NOTED/ SITTING UP HAVING DINNER/ DENIES ANY N/V OR CP AT THIS TIME. IV TO THE LAC INTACT AND PATENT/ HEPLOCKED. WILL CONTINUE TO MONITOR.
--- NOTE | 2020-03-05 18:41 | NUR ---
NO ACUTE CHANGES AT THIS TIME, NO ACUTE RESP DISTRESS OR SOB NOTED. WILL ENDORSE TO INCOMING RN.
--- NOTE | 2020-03-05 19:15 | NUR ---
CARE ASSUMED FROM OUTGOING RN. PT CURRENTLY ON 2LNC, SATTING 98%. ON TELE# 35 READING SR 68 WITH OCC PVC'S, PACED ON DEMAND. NO C/O SOB AT THIS TIME. CONTACT AND DROPLET ISOLATION IN PLACE. CIM GUARDS AT DOOR. WILL CONTINUE TO MONITOR.
[2020-03-05 20:22] VITALS: BP 104/67
--- NOTE | 2020-03-06 00:20 | NUR ---
PT RESTING COMFORTABLY IN BED WITH EYES CLOSED. NO ACUTE DISTRESS NOTED. EVEN AND UNLABORED RESPIRATIONS ON 2LNC, SATTING 99%. ON TELE READING SR 69 WITH OCC PVC, PACED ON DEMAND. CIM GUARDS AT DOOR. WILL CONTINUE TO MONITOR.
[2020-03-06 04:38] VITALS: BP 114/68
--- NOTE | 2020-03-06 06:14 | NUR ---
PT RESTED COMFORTABLY IN INTERVALS THROUGHOUT THE SHIFT. ALL NEEDS TENDED TO AND MET. EVEN AND UNLABORED RESPIRATIONS ON 2LNC, SATTING 99%. ON TELE READING SR 75 WITH OCC PVCS, PACED ON DEMAND. C/O ABD PAIN MEDICATED PER EMAR. CIM GUARD AT DOOR. CONTACT AND DROPLET ISOLATION IN PLACE. BED IN LOWEST POSITION. SIDE RAILS UPX2. CALL LIGHT WITHIN REACH. WILL ENDORSE TO ONCOMING SHIFT.
[2020-03-06 07:44] LABS: CARBON DIOXIDE 22.5 mmol/L (21-32); CHLORIDE SERUM 100 mmol/L (98-107); CREATININE SERUM 0.9 mg/dL (0.7-1.3); GFR1 > 60 mL/min; GLUCOSE SERUM 122 mg/dL (74-106); POTASSIUM SERUM 4.2 mmol/L (3.5-5.1); SODIUM SERUM 136 mmol/L (136-145)
[2020-03-06 07:47] LABS: RED CELL DISTRIBUTION WIDTH 15.3 % (11.5-14.5)
[2020-03-06 07:48] LABS: PLATELET COUNT 567 x10^3mcL (130-400)
--- NOTE | 2020-03-06 07:49 | NUR ---
RECEIVED CRITICAL WBC 25.7 AND PLT 567 AT 0747. LAB REPORT GIVEN TO ATTENDING NURSE TO F/U WITH .
[2020-03-06 09:03] VITALS: BP 101/62
--- NOTE | 2020-03-06 09:30 | NUR ---
RECEIVED PT FROM NIGHT NURSE. PT C/O 02/01 ABDOMINAL PAIN. WILL GIVE TYLENOL ORDERED PRN. REPORTED LOOSE STOOL X3 AND REFUSED COLACE AND METOPROLOL, CITING THE MEDS THE CAUSE OF HIS PAIN. PT FROM [facility]. ALL SAFETY PRECAUTIONS IN PLACE. SAO2 96% ON 2L NC. NO ACUTE DISTRESS. INSTRUCTED TO CALL FOR ANY NEEDS OR IF IN ANY DISCOMFORT. WILL CONTINUE TO MONITOR.
[2020-03-06 11:59] LABS: MONOCYTE 2 % (0-7); SEGMENTED NEUTROPHILS 89 % (37-75); rbc morphology (normal/abnorm) NORMAL (NORMAL)
[2020-03-06 12:27] VITALS: BP 97/52
[2020-03-06 16:21] VITALS: BP 96/65
--- NOTE | 2020-03-06 19:35 | NUR ---
PT HAS CONSISTENTLY DENIED PAIN THROUGHOUT SHIFT AFTER RECEIVING TYLENOL IN THE AM. STILL ON 2L NC AND SAO2 99% CURRENTLY. NO ACUTE DISTRESS. SAFETY PRECAUTIONS IN PLACE. ENDORSED TO NIGHT NURSE
--- NOTE | 2020-03-06 19:45 | NUR ---
PT IS SITTING UP IN BED. A/O X4. TELEMONITOR 35. PACED ON DEMAND. PULSES PALPABLE AND NO EDEMA NOTED. ON 2 L NC. LUNG SOUNDS DIMINISHED AT BASES. BOWEL SOUNDS ACTIVE. PT IS C/O ABD PAIN WHEN HE PASSES A BM. HE ALSO STATES WHEN HE PASSES A BM HE HAS SOB. ALTHOUGH, THE SOB SUBSIDES AFTER HE HAS PASSED A BM. BEDSIDE COMMODE AT BEDSIDE. PT IS ABLE TO AMBULATE WITH A BALANCED AND STEADY GAIT. GENERALIZED WEAKNESS. DENIES PAIN AT THIS TIME. LAC IV CDI. DENIES PAIN AT SITE. BED IN LOWEST AND LOCKED POSITION. WILL CONTINUE TO MONITOR. CALL LIGHT WITHIN REACH.
--- NOTE | 2020-03-06 20:45 | NUR ---
PT REFUSED METOPROLOL. PT STATES HE DISLIKES THE SIDE EFEECTS OF THE MEDICATION. BP WAS 104/78. HR 69.
[2020-03-06 21:03] VITALS: BP 92/56
--- NOTE | 2020-03-06 21:55 | NUR ---
PT STATES HE HAS 5/10 PAIN IN ABD. HE STATES THE TYLENOL HELPED EARLIER. WAS GIVEN LAST AT 1000. PT WAS GIVEN TYLENOL PRESCRIBED FOR PAIN. WILL F/U FOR EFFECT OF MEDICATION.
--- NOTE | 2020-03-06 22:49 | NUR ---
PT STATES PAIN HAS SUBSIDED. DENIES PAIN AT THIS TIME. NO S/S OF RESP DISTRESS. WILL CONTINUE TO MONITOR.
[2020-03-07 05:56] VITALS: BP 106/53
--- NOTE | 2020-03-07 06:31 | NUR ---
PT WAS C/O PAIN IN ABD 01/01 AND A NOE. PT STATES HE HAD DIFFICULTY SLEEPING THROUGHOUT THE NIGHT. WILL MEDICATE PRN WITH PRESCRIBED TYLENOL. WILL F/U FOR FOR EFFECT OF MEDICATION.
[2020-03-07 08:03] LABS: CALCIUM 8.4 mg/dL (8.5-10.1); CARBON DIOXIDE 25.3 mmol/L (21-32); CHLORIDE SERUM 102 mmol/L (98-107); CREATININE SERUM 0.8 mg/dL (0.7-1.3); GFR1 > 60 mL/min; GLUCOSE SERUM 86 mg/dL (74-106); POTASSIUM SERUM 3.5 mmol/L (3.5-5.1); SODIUM SERUM 136 mmol/L (136-145)
[2020-03-07 08:45] VITALS: BP 101/81
--- NOTE | 2020-03-07 08:54 | NUR ---
RECEIVED PT FROM NIGHT NURSE. RECENTLY MEDICATED WITH TYLENOL BEFORE START OF SHIFT AND DENIES PAIN. HE APPEARS COMFORTABLE. SAO2 100% ON 2L NC. NO ACUTE RESPIRATORY DISTRESS. PT C/O LOOSE STOOL LAST OCCURRING THIS AM. HE IS AMBULATORY TO BATHROOM AND ALSO USES BEDSIDE COMMODE. SAFETY PRECAUTIONS IN PLACE. INSTRUCTED TO USE CALL LIGHT AT BEDSIDE FOR NEEDS. WILL CONTINUE TO MONITOR.
[2020-03-07 09:12] LABS: PLATELET COUNT 452 x10^3mcL (130-400); RED CELL DISTRIBUTION WIDTH 15.1 % (11.5-14.5)
[2020-03-07 11:25] LABS: BAND NEUTROPHIL 1 % (0-10); MONOCYTE 4 % (0-7); SEGMENTED NEUTROPHILS 85 % (37-75); rbc morphology (normal/abnorm) NORMAL (NORMAL)
[2020-03-07 12:24] VITALS: BP 111/51
[2020-03-07 12:47] VITALS: BP 108/64
== END 2020-03-07 15:00 | disposition other institution (70) | DRG 177 ==
LOC: ED 19:26 → DU 21:33
PROVIDERS: Emergency Medicine; ADMIT Internal Medicine; ATTEND Internal Medicine
DX: U07.1 COVID-19 (principal); J96.01 Acute respiratory failure with hypoxia; J12.89 Other viral pneumonia; E87.1 Hypo-osmolality and hyponatremia; I47.2 Ventricular tachycardia; I50.9 Heart failure, unspecified; I25.10 Atherosclerotic heart disease of native coronary artery without angina pectoris; E78.00 Pure hypercholesterolemia, unspecified; I11.0 Hypertensive heart disease with heart failure; I25.5 Ischemic cardiomyopathy; D72.829 Elevated white blood cell count, unspecified; J45.909 Unspecified asthma, uncomplicated; Z79.899 Other long term (current) drug therapy; Z86.11 Personal history of tuberculosis; Z95.0 Presence of cardiac pacemaker; I25.2 Old myocardial infarction
CPT/HCPCS: 83880; 85378; 87804; G0378; J0456; J0696; J1100; J1650; J3535; J7030; J7050; J7060; Q0092